=== PATIENT | male | born 1940 | race Caucasian/White ===

== ENCOUNTER → 2020-08-02 | Outpatient (CLI) | payer MEDICARE ==
[~2020-08-02] MED LIST: ATORVASTATIN CA20 MG PO; CLINDAMYCIN HC300 MG PO; CLOPIDOGREL75 MG PO; ECOTRIN81 MG PO; ENTRESTO 24 MG1 EACH PO; FARXIGA10 MG PO; FENOFIBRATE134 MG PO; FUROSEMIDE20 MG PO; GLYBURIDE-METF1 EACH PO; HYDROCODON-ACE1 EAC4 PO; JANUVIA100 MG PO; LEVOFLOXACIN250 MG PO; LEVOTHYROXINE25 MCG PO; LIPITOR TAB 1010 MG PO; MELATONIN10 M2 PO; METOPROLOL SUCC25 MG PO; POTASSIUM CHLO10 MEQ PO; PROTONIX 40 MG40 M1 PO; PROTONIX40 MG PO; QUINAPRIL HCL5 MG PO; RANITIDINE HCL300 MG PO; TERAZOSIN HCL5 MG PO; VIT D PO; VITAMIN B12-FO1 EACH PO
== END ==
LOC: ECHO 11:28 → NM 13:00
DX: R94.31 Abnormal electrocardiogram [ECG] [EKG] (principal); E78.49 Other hyperlipidemia; I49.9 Cardiac arrhythmia, unspecified; R06.02 Shortness of breath; E11.9 Type 2 diabetes mellitus without complications; I65.29 Occlusion and stenosis of unspecified carotid artery
CPT/HCPCS: ECHO; 78452; 93017; 93306; A9502; J2785

== ENCOUNTER → 2020-08-16 | Outpatient (CLI) | payer OTHER ==
[2020-08-16 12:27] LABS: HEMOGLOBIN 11.3 gm/dl (14.0-17.5); RED BLOOD COUNT 4.8 M/UL (4.20-5.50); WHITE BLOOD COUNT 6.2 K/UL (4.5-11.0)
== END ==
LOC: LAB 12:06
PROVIDERS: Internal Medicine Interventional Cardiology
DX: Z01.812 Encounter for preprocedural laboratory examination (principal); I11.0 Hypertensive heart disease with heart failure; I50.9 Heart failure, unspecified; I42.9 Cardiomyopathy, unspecified; I65.29 Occlusion and stenosis of unspecified carotid artery; K21.9 Gastro-esophageal reflux disease without esophagitis; R94.31 Abnormal electrocardiogram [ECG] [EKG]; R94.39 Abnormal result of other cardiovascular function study
CPT/HCPCS: 36415; 80048; 85025

== ENCOUNTER → 2020-08-31 | Outpatient (CLI) | payer OTHER ==
[2020-08-31 10:09] LABS: HEMOGLOBIN 10.6 gm/dl (14.0-17.5); RED BLOOD COUNT 4.74 M/UL (4.20-5.50); WHITE BLOOD COUNT 6.3 K/UL (4.5-11.0)
== END ==
LOC: LAB 09:32
PROVIDERS: Internal Medicine Interventional Cardiology
DX: I11.0 Hypertensive heart disease with heart failure (principal); I50.9 Heart failure, unspecified; R94.39 Abnormal result of other cardiovascular function study; I42.9 Cardiomyopathy, unspecified; E11.9 Type 2 diabetes mellitus without complications; R06.02 Shortness of breath; I45.10 Unspecified right bundle-branch block; R94.31 Abnormal electrocardiogram [ECG] [EKG]
CPT/HCPCS: 36415; 80048; 85025; 85610; 85730; 93005

== ENCOUNTER 2020-09-04 06:56 | Inpatient (IN) | payer MEDICARE ==
[~2020-09-04] VITALS: Ht 162.6 cm; Wt 66.2 kg
[~2020-09-04 06:56] MED LIST changes: -ATORVASTATIN CA20 MG PO; -CLINDAMYCIN HC300 MG PO; -ECOTRIN81 MG PO; -ENTRESTO 24 MG1 EACH PO; -FARXIGA10 MG PO; -FUROSEMIDE20 MG PO; -HYDROCODON-ACE1 EAC4 PO; -LEVOFLOXACIN250 MG PO; -LEVOTHYROXINE25 MCG PO; -MELATONIN10 M2 PO; -METOPROLOL SUCC25 MG PO; -POTASSIUM CHLO10 MEQ PO; -PROTONIX 40 MG40 M1 PO; -PROTONIX40 MG PO; -VITAMIN B12-FO1 EACH PO
[2020-09-04] MEDS ORDERED: PROTONIX 40 MG40 M1 PO (07:55)
[2020-09-04] MEDS ORDERED: FUROSEMIDE20 MG PO (07:55)
[2020-09-04] MEDS ORDERED: POTASSIUM CHLO10 MEQ PO (07:56)
[2020-09-04] MEDS ORDERED: VITAMIN B12-FO1 EACH PO (07:56)
[2020-09-04] MEDS ORDERED: METOPROLOL SUCC25 MG PO (07:58)
[2020-09-04] MEDS ORDERED: MELATONIN10 M2 PO (08:01)
[2020-09-04] MEDS ORDERED: ATORVASTATIN CA20 MG PO (12:35)
[2020-09-04] MEDS ORDERED: LEVOTHYROXINE25 MCG PO (12:35)
[2020-09-04 19:09] LABS: HEMOGLOBIN 10.7 gm/dl (14.0-17.5); RED BLOOD COUNT 4.68 M/UL (4.20-5.50); WHITE BLOOD COUNT 6.4 K/UL (4.5-11.0)
--- NOTE | 2020-09-04 19:11 | NUR ---
SPOKE WITH DR GRACE REGARDING RESULTS OF PATIENTS CHEST XRAY AND SHE STATES THAT SHE WANTS A CONSULT PUT IN FOR HOSPITALIST TO ADDRESS THE PNEUMONIA SHOWN ON THE CHEST XRAY. DR ALVARES IS [employer] BUT WHEN I CALLED HIM HE SAID FOR THE [employer] NURSE TO CALL DR TONY DUE TO IT NEARING THE END OF HIS SHIFT. [employer] SPECIALIST NURSE PHILLIP INFORMED WITH READ BACK THAT SHE IS TO CALL DR TONY AND NOTIFY HIM THAT THIS PATIENT HAS BEEN PLACED ON HIS LIST.
--- NOTE | 2020-09-05 14:15 | NUR ---
PATIENT INSTRUCTED TO KEEP LIFE VEST ON AND IS REFUSING TO WEAR AT THIS TIME. HE REMOVES HIS TELEMETRY AND OXYGEN ALSO, I HAVE EDUCATED THE PATIENT ON ALL OF THE BENEFITS AND HE STILL DISREGARDS AND REFUSES TO WEAR NEEDED MEDICAL EQUIPMENT. DR ROUSE MADE AWARE THAT THE PATIENT HAS HAD A CT SCAN TODAY WELL AND RESULTS. WILL CONTINUE TO ENCOURAGE THE PATIENT TO KEEP TELEMETRY, OXYGEN, AND WILL ATTEMPT TO GET HIM TO REAPPLY HIS LIFE VEST WELL.
[2020-09-06 03:08] LABS: HEMOGLOBIN 9.3 gm/dl (14.0-17.5); WHITE BLOOD COUNT 4.8 K/UL (4.5-11.0)
[2020-09-06 03:09] LABS: RED BLOOD COUNT 4.15 M/UL (4.20-5.50)
--- NOTE | 2020-09-06 08:37 | NUR ---
SPOKE WITH THE UROLOGIST OFFICE TO PLACE THIS PATIENT ON THE LIST FOR CARLOS ALBERTO [place] BECAUSE THAT IS WHO THE [facility] SAID WAS CREDIT REPORT CHECKER BUT WHEN I CALLED THE OFFICE THEY SAID CARLOS ALBERTO WAS IN QUARANTINE FOR COVID 19 AT THIS TIME. THE PATIENT WAS PLACED ON THE LIST FOR THE UROLOGIST THAT IS COMING FROM [place] BUT WILL NOT BE COMING UNTIL TOMORROW. THE OFFICE STATES THAT IF THEY CAN FIND SOMEONE SOONER THEY WILL CALL ME BACK. THE PATIENTS INFORMATION WAS LEFT WITH THEM FOR FUTURE REFERENCE AND THAT THE CONSULT WAS FOR A NEW KIDNEY NEOPLASM.
[2020-09-07 02:31] LABS: HEMOGLOBIN 9.3 gm/dl (14.0-17.5); RED BLOOD COUNT 4.15 M/UL (4.20-5.50); WHITE BLOOD COUNT 5.8 K/UL (4.5-11.0)
[2020-09-08 08:32] LABS: HEMOGLOBIN 10.4 gm/dl (14.0-17.5); WHITE BLOOD COUNT 5.6 K/UL (4.5-11.0)
[2020-09-08 08:33] LABS: RED BLOOD COUNT 4.62 M/UL (4.20-5.50)
[2020-09-08] MEDS ORDERED: FUROSEMIDE20 MG PO (09:28)
== END 2020-09-08 11:17 | disposition home or self-care (01) | DRG 246 ==
LOC: PROG CARE 06:56 → CATH 06:56 → PROG CARE 11:37 → CATH 09-06 11:00 → PROG CARE 09-06 11:00
PROVIDERS: Internal Medicine; ADMIT Internal Medicine Interventional Cardiology
PROC: 027034Z Dilation of Coronary Artery, One Artery with Drug-eluting Intraluminal Device, Percutaneous Approach (ICD-10-PCS; principal; 2020-09-04)
PROC: 4A023N7 Measurement of Cardiac Sampling and Pressure, Left Heart, Percutaneous Approach (ICD-10-PCS; 2020-09-04)
PROC: B211YZZ Fluoroscopy of Multiple Coronary Arteries using Other Contrast (ICD-10-PCS; 2020-09-04)
PROC: 4A0335C Measurement of Arterial Flow, Coronary, Percutaneous Approach (ICD-10-PCS; 2020-09-04)
DX: I42.0 Dilated cardiomyopathy (principal); J96.01 Acute respiratory failure with hypoxia; J90 Pleural effusion, not elsewhere classified; N17.9 Acute kidney failure, unspecified; I13.0 Hypertensive heart and chronic kidney disease with heart failure and stage 1 through stage 4 chronic kidney disease, or unspecified chronic kidney disease; I50.20 Unspecified systolic (congestive) heart failure; I25.119 Atherosclerotic heart disease of native coronary artery with unspecified angina pectoris; N40.0 Benign prostatic hyperplasia without lower urinary tract symptoms; N28.89 Other specified disorders of kidney and ureter; N20.0 Calculus of kidney; N28.1 Cyst of kidney, acquired; E11.22 Type 2 diabetes mellitus with diabetic chronic kidney disease; N18.9 Chronic kidney disease, unspecified; D64.9 Anemia, unspecified; E78.5 Hyperlipidemia, unspecified; Z79.02 Long term (current) use of antithrombotics/antiplatelets; Z79.890 Hormone replacement therapy; Z79.84 Long term (current) use of oral hypoglycemic drugs; Z79.899 Other long term (current) drug therapy; Z79.82 Long term (current) use of aspirin
CPT/HCPCS: 36415; 71045; 71250; 74170; 80048; 82728; 82962; 83540; 83550; 83735; 85025; 85027; 85347; 86140; 93005; 99152; 99153; C1725; C1751; C1769; C1874; C1887; C9600; J0461; J1200; J1644; J1940; J2250; J2405; J3010; J7030; J7040; Q9965

== ENCOUNTER → 2020-09-28 | Outpatient (CLI) | payer MEDICARE ==
[~2020-09-28] MED LIST changes: +ATORVASTATIN CA20 MG PO; +CLINDAMYCIN HC300 MG PO; +ECOTRIN81 MG PO; +ENTRESTO 24 MG1 EACH PO; +FARXIGA10 MG PO; +FUROSEMIDE20 MG PO; +HYDROCODON-ACE1 EAC4 PO; +LEVOFLOXACIN250 MG PO; +LEVOTHYROXINE25 MCG PO; +MELATONIN10 M2 PO; +METOPROLOL SUCC25 MG PO; +POTASSIUM CHLO10 MEQ PO; +PROTONIX 40 MG40 M1 PO; +PROTONIX40 MG PO; +VITAMIN B12-FO1 EACH PO
== END ==
LOC: EXRD 13:07
DX: R06.02 Shortness of breath (principal); J90 Pleural effusion, not elsewhere classified
CPT/HCPCS: 71046

== ENCOUNTER → 2020-10-19 | Outpatient (CLI) | payer MEDICARE | LOC: EXRD 10:27 | DX: J90 Pleural effusion, not elsewhere classified (principal); R91.8 Other nonspecific abnormal finding of lung field | CPT/HCPCS: 71046 ==

== ENCOUNTER → 2020-12-13 | Outpatient (CLI) | payer MEDICARE | LOC: HEART 5 12-11 10:00 | DX: I42.0 Dilated cardiomyopathy (principal); I08.3 Combined rheumatic disorders of mitral, aortic and tricuspid valves; I27.20 Pulmonary hypertension, unspecified; R93.1 Abnormal findings on diagnostic imaging of heart and coronary circulation | CPT/HCPCS: 93306 ==

== ENCOUNTER → 2021-01-22 | Outpatient (CLI) | payer MEDICARE | LOC: KOH-I 11:54 | DX: R07.81 Pleurodynia (principal); W19.XXXA Unspecified fall, initial encounter | CPT/HCPCS: 71101 ==

== ENCOUNTER → 2021-02-09 | Outpatient (CLI) | payer MEDICARE ==
[2021-02-09 10:05] LABS: HEMOGLOBIN 13.9 gm/dl (14.0-17.5); RED BLOOD COUNT 5.15 M/UL (4.20-5.50); WHITE BLOOD COUNT 3.8 K/UL (4.5-11.0)
== END ==
LOC: LAB 08:28
PROVIDERS: Internal Medicine Cardiovascular Disease
DX: I50.22 Chronic systolic (congestive) heart failure (principal); I42.0 Dilated cardiomyopathy; I45.4 Nonspecific intraventricular block
CPT/HCPCS: 36415; 71046; 80048; 85025

== ENCOUNTER 2021-02-13 12:48 | Outpatient (CLI) | payer MEDICARE ==
[~2021-02-13] VITALS: Ht 162.6 cm; Wt 65.3 kg
[~2021-02-13 12:48] MED LIST changes: -CLINDAMYCIN HC300 MG PO; -ECOTRIN81 MG PO; -ENTRESTO 24 MG1 EACH PO; -FARXIGA10 MG PO; -HYDROCODON-ACE1 EAC4 PO; -LEVOFLOXACIN250 MG PO; -PROTONIX40 MG PO
[2021-02-13] MEDS ORDERED: ECOTRIN81 MG PO (13:40)
[2021-02-13] MEDS ORDERED: PROTONIX40 MG PO (13:40)
[2021-02-13] MEDS ORDERED: ENTRESTO 24 MG1 EACH PO (13:41)
[2021-02-13] MEDS ORDERED: FARXIGA10 MG PO (13:41)
[2021-02-13] MEDS ORDERED: CLINDAMYCIN HC300 MG PO (17:16)
[2021-02-13] MEDS ORDERED: HYDROCODON-ACE1 EAC4 PO (17:16)
[2021-02-13] MEDS ORDERED: LEVOFLOXACIN250 MG PO (17:16)
== END 2021-02-14 10:20 | disposition home or self-care (01) ==
LOC: CATH 12:48 → PROG CARE 17:15 → CATH 02-14 10:20 → PROG CARE 02-14 10:20
DX: I42.0 Dilated cardiomyopathy (principal); I25.10 Atherosclerotic heart disease of native coronary artery without angina pectoris; I13.10 Hypertensive heart and chronic kidney disease without heart failure, with stage 1 through stage 4 chronic kidney disease, or unspecified chronic kidney disease; I50.22 Chronic systolic (congestive) heart failure; N18.9 Chronic kidney disease, unspecified; E11.22 Type 2 diabetes mellitus with diabetic chronic kidney disease; I25.2 Old myocardial infarction; I65.29 Occlusion and stenosis of unspecified carotid artery; I27.20 Pulmonary hypertension, unspecified; K21.9 Gastro-esophageal reflux disease without esophagitis; Z86.73 Personal history of transient ischemic attack (TIA), and cerebral infarction without residual deficits; E03.9 Hypothyroidism, unspecified; D50.9 Iron deficiency anemia, unspecified; E53.8 Deficiency of other specified B group vitamins; E55.9 Vitamin D deficiency, unspecified; Z87.891 Personal history of nicotine dependence; Z98.61 Coronary angioplasty status; Z79.82 Long term (current) use of aspirin; Z79.01 Long term (current) use of anticoagulants; Z79.899 Other long term (current) drug therapy
CPT/HCPCS: 33225; 33249; 71045; 93005; 93641; 99152; 99153; C1769; C1777; C1882; C1898; C1900; J1265; J1644; J2250; J3010; J3370; J7040; J7050; J7070; Q9965

== ENCOUNTER → 2021-03-23 | Outpatient (CLI) | payer MEDICARE, OTHER ==
[~2021-03-23] MED LIST changes: +CLINDAMYCIN HC300 MG PO; +ECOTRIN81 MG PO; +ENTRESTO 24 MG1 EACH PO; +FARXIGA10 MG PO; +HYDROCODON-ACE1 EAC4 PO; +LEVOFLOXACIN250 MG PO; +PROTONIX40 MG PO
== END ==
LOC: KOH-I 13:45
DX: N28.89 Other specified disorders of kidney and ureter (principal)
CPT/HCPCS: 74176

== ENCOUNTER → 2022-01-09 | Outpatient (CLI) | payer MEDICARE | LOC: LAB 11:10 | PROVIDERS: Physician Assistant | DX: N28.9 Disorder of kidney and ureter, unspecified (principal) | CPT/HCPCS: 36415; 80048 ==